=== PATIENT | female | born 1970 | race Caucasian/White ===

== ENCOUNTER 2019-10-09 17:48 | Emergency (ER) | payer MEDICAID, OTHER ==
[~2019-10-09] VITALS: Ht 163.8 cm; Wt 74.0 kg
[2019-10-09] MEDS ORDERED: METH10OR12 PO (18:12)
[2019-10-09] MEDS ORDERED: LORA10TA75 PO (18:13)
[2019-10-09] MEDS ORDERED: LORA10CA PEG (18:13)
--- NOTE | 2019-10-09 18:34 | NUR ---
Patient resting comfortably in bed, no further needs at this time.
[2019-10-09] MEDS ORDERED: HYDROmorphone 1 MG/ML, 1ML INJ ONE (18:52)
[2019-10-09] MEDS ORDERED: HYDROmorphone 1 MG/ML, 1ML INJ IM PRN (19:00)
--- NOTE | 2019-10-09 19:07 | NUR ---
Report recieved from RAFAEL Pineda. This RN to assume care. Medicated patient per mar. Awaiting US results.
[2019-10-09 20:42] VITALS: BP 112/50
== END 2019-10-09 20:47 | disposition home or self-care (01) ==
LOC: ED 18:30
DX: I83.92 Asymptomatic varicose veins of left lower extremity (principal); F17.210 Nicotine dependence, cigarettes, uncomplicated; Z86.718 Personal history of other venous thrombosis and embolism
CPT/HCPCS: 93971; 96372; 99285; 99406; J1170

== ENCOUNTER 2019-10-22 12:04 | Emergency (ER) | payer MEDICAID, OTHER ==
[~2019-10-22] VITALS: Ht 162.6 cm; Wt 67.1 kg
[~2019-10-22 12:04] MED LIST: LORA10CA PEG; LORA10TA75 PO; METH10OR12 PO
[2019-10-22 12:13] VITALS: BP 119/64
[2019-10-22 13:11] LABS: ALBUMIN 3.7 g/dL (3.4-5.0); ANION GAP 8 mmol/L (5-15); CALCIUM 9.5 mg/dL (8.5-10.1); CHLORIDE 109 mmol/L (98-107)
--- NOTE | 2019-10-22 13:26 | NUR ---
After reciveing Atarax, Pt refusing lab draw, refusing VS, refusing fuirther care. Pt states desire to leave. Pt signed AMA form with an "X".
== END 2019-10-22 13:31 | disposition left against medical advice (07) ==
LOC: ED 13:01
DX: F41.1 Generalized anxiety disorder (principal); F11.20 Opioid dependence, uncomplicated; R11.2 Nausea with vomiting, unspecified; R19.7 Diarrhea, unspecified; R00.0 Tachycardia, unspecified
CPT/HCPCS: 36415; 80048; 82040; 99281; Q0177; 99283

== ENCOUNTER 2019-12-07 08:36 | Emergency (ER) | payer MEDICAID ==
[~2019-12-07] VITALS: Ht 162.6 cm; Wt 67.4 kg
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
[2019-12-07] MEDS ORDERED: OXYcodone/APAP 10/325MG TABLET PO ONE (09:00)
[2019-12-07] MEDS ORDERED: CEPHALEXIN 500 MG CAPSULE PO ONE (09:00)
[2019-12-07] MEDS ORDERED: SULFAMETH./TRIMETHOPRIM DS 800MG/160MG TABLET PO ONE (09:00)
--- NOTE | 2019-12-07 09:00 | NUR ---
report given to kylee freeman.
[2019-12-07] MEDS ORDERED: SULFAMETH./TRIMETHOPRIM DS 800MG/160MG TABLET ONE (09:04)
[2019-12-07] MEDS ORDERED: OXYcodone/APAP 10/325MG TABLET ONE (09:04)
[2019-12-07] MEDS ORDERED: CEPHALEXIN 500 MG CAPSULE ONE (09:04)
[2019-12-07 10:13] VITALS: BP 105/57
[2019-12-07] MEDS ORDERED: LIDOCAINE 1%-EPI 1:100K, 20ML ONE (10:54)
[2019-12-07] MEDS ORDERED: DIPH,PERTUSS(ACELL),TET VAC/PF 0.5 ML IM-VACC ONE ×2 (10:54→11:00)
[2019-12-07] MEDS ORDERED: LIDOCAINE-MPF 1%, 5ML INFIL ONE (11:00)
== END 2019-12-07 11:29 | disposition home or self-care (01) ==
LOC: ED 09:01
DX: L03.113 Cellulitis of right upper limb (principal); L02.413 Cutaneous abscess of right upper limb; Z86.718 Personal history of other venous thrombosis and embolism
CPT/HCPCS: 10060; 90471; 90715; 99284

== ENCOUNTER 2020-01-10 17:02 | Outpatient (CLI) | payer MEDICAID ==
[~2020-01-10] VITALS: Ht 162.6 cm; Wt 75.9 kg
[2020-01-10 18:04] VITALS: BP 116/72
[2020-01-10 18:07] LABS: MICROSCOPIC AUTO
[2020-01-10 18:11] LABS: AMPHETAMINE SCREEN, URINE Positive (Negative); BARBITURATE SCREEN, URINE Negative (Negative); BENZODIAZEPINE SCREEN, URINE Negative (Negative); CANNABINOID SCREEN, URINE Positive (Negative); COCAINE SCREEN, URINE Negative (Negative); METHADONE SCREEN, URINE Negative (Negative); OPIATE SCREEN, URINE Negative (Negative)
== END 2020-01-10 18:59 | disposition home or self-care (01) ==
LOC: LDOP 17:02
PROVIDERS: ATTEND Obstetrics & Gynecology
DX: O09.899 Supervision of other high risk pregnancies, unspecified trimester (principal); R25.2 Cramp and spasm; Z3A.00 Weeks of gestation of pregnancy not specified
CPT/HCPCS: 36415; 80307; 81001; 84702; 87086

== ENCOUNTER 2020-01-12 09:40 | Emergency (ER) | payer MEDICAID ==
[~2020-01-12] VITALS: Ht 162.6 cm; Wt 67.0 kg
--- NOTE | 2020-01-12 09:45 | NUR ---
CALLED FOR TRIAGE, NO ANSWER
[2020-01-12 09:57] VITALS: BP 91/57
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
[2020-01-12] MEDS ORDERED: CEFTRIAXONE 1,000 MG ONE (10:23)
[2020-01-12] MEDS ORDERED: CEFTRIAXONE 1,000 MG IM ONE (10:30)
== END 2020-01-12 11:01 | disposition home or self-care (01) ==
LOC: ED 10:34
DX: N30.00 Acute cystitis without hematuria (principal); F41.9 Anxiety disorder, unspecified
CPT/HCPCS: 96372; 99283; J0696